=== PATIENT | female | born 1960 | race Caucasian/White ===

== ENCOUNTER → 2018-10-01 14:05 | Outpatient (CLI) | payer OTHER, SELFPAY ==
--- NOTE | 2018-10-01 14:08 | DI.MRI.S_ITS ---
BREAST MRI OF THE RIGHT BREAST: 10/01/2018 CLINICAL: Lesion right breast follow up. PROCEDURE: MR BREAST BI WO/W CON INDICATIONS: Right breast LCIS presents for high-risk screening. TECHNIQUE: The patient was placed prone in a dedicated breast imaging coil. Precontrast axial STIR and 3D FLASH without fat saturation sequences were obtained. Both before and after bolus injection of contrast, sequential 1-minute axial 3D FLASH with fat saturation sequences for 3 time points, with subtraction images and maximum intensity projections (MIP's) generated. Delayed sagittal FLASH images with fat saturation were also obtained. Computer-aided detection, including computer algorithm analysis of MRI image data for lesion detection and characterization, pharmacokinetic analysis, with further physician review for interpretation, was performed. COMPARISON: Outside Facility, [facility], MRI BREAST BILATERAL, 04/12/2017, 14:57. Breast MRI 04/12/2017, 03/01/2016. Tomosynthesis 12/14/2017, 08/23/2016. FINDINGS: Image quality: Excellent. There is minimal background parenchymal enhancement. Right breast: Round enhancing focus in the retroareolar breast at middle depth, (18/68 and 11/53). Oval enhancing focus in the retroareolar lateral breast at posterior depth, (18/58 and 11/76). No suspicious adenopathy. Left breast: Oval enhancing focus in the lateral breast at posterior depth, (19/116 and 11/73). No suspicious adenopathy. Miscellaneous: Nondisplaced right anterolateral fourth rib fracture. IMPRESSION: Right breast: Stable small enhancing foci. BI-RADS 2. Left breast: Stable small enhancing foci. BI-RADS 2. No suspicious adenopathy. Nondisplaced right anterolateral rib fracture. BIRADS overall score 2. COMMENT: The imaging literature indicates that a negative contrast breast MRI examination has a high sensitivity and a moderate specificity for detecting and excluding invasive carcinomas to a detection threshold of 3-5 mm; nonetheless, appropriate clinical and mammographic follow-up are recommended. MRI is not sensitive for detecting DCIS (ductal carcinoma in situ) and may not detect large invasive neoplasms that show only minimal enhancement such as mucinous carcinoma. If there are suspicious calcifications or clinically worrisome palpable masses, then biopsy should still be considered. Invasive neoplasms can be hidden by co-existent and benign enhancement caused by mastitis, hormone therapy effects, radiation therapy, , and recent biopsy or surgery. False positive examinations can occur in a number of circumstances, including breasts that have recently been subject to invasive procedures and those that contain atypical ductal hyperplasia, hormonally stimulated glandular tissue, fat necrosis, or radial scars. Dictated by: Hermelindo Jackson M.D. on 10/02/2018 at 8:47 This exam was interpreted at Station ID: [id number]. Electronically Signed By: Hermelindo Jackson M.D. slc/:10/06/2018 17:57:40 letter sent: Normal Exam ACR BI-RADS Category 2: Benign Finding(s) 3342F
== END ==
PROVIDERS: Visit Provider Nurse Practitioner Family
DX: R92.8 Other abnormal and inconclusive findings on diagnostic imaging of breast (principal); D05.01 Lobular carcinoma in situ of right breast
CPT/HCPCS: 77049; A9579

== ENCOUNTER → 2019-04-14 17:17 | Outpatient (CLI) | payer OTHER, SELFPAY ==
--- NOTE | 2019-04-14 | DI.MG.S_ITS ---
BILATERAL DIGITAL SCREENING MAMMOGRAM 3D/2D WITH CAD: 04/14/2019 CLINICAL: Routine screening. Family history of breast cancer. Comparison is made to exams dated: 07/21/2015 mammogram, 08/23/2016 mammogram, and 12/14/2017 mammogram - [facility]. There are scattered fibroglandular elements in both breasts. Current study was also evaluated with a Computer Aided Detection (CAD) system. There are benign post operative findings in the right breast. No significant masses, calcifications, or other findings are seen in either breast. There has been no significant interval change. IMPRESSION: There is no mammographic evidence of malignancy. A 1 year screening mammogram is recommended. This exam was interpreted at Station ID: [id number]. NOTE: For mammograms, a report in lay terms will be sent to the patient. Approximately 15% of breast malignancies will not be visualized mammographically. In the management of a palpable breast mass, a negative mammogram must not discourage biopsy of a clinically suspicious lesion. Electronically Signed By: Luis Alberto bolaños/javad:04/15/2019 07:39:00 letter sent: Normal Exam ACR BI-RADS Category 2: Benign Finding(s) 3342F
== END ==
PROVIDERS: PCP Student in an Organized Health Care Education/Training Program; Referring Provider Student in an Organized Health Care Education/Training Program; Visit Provider Student in an Organized Health Care Education/Training Program
DX: Z12.31 Encounter for screening mammogram for malignant neoplasm of breast (principal); Z80.3 Family history of malignant neoplasm of breast
CPT/HCPCS: 77063; 77067

== ENCOUNTER → 2019-10-13 09:05 | Outpatient (CLI) | payer BC, SELFPAY ==
[2019-10-13 10:35] LABS: Hematocrit 42.3 % (36-46); Hemoglobin 14.4 g/dL (12.0-16.0); Mean Corpuscular HGB Conc 34.1 % (30-36); Mean Corpuscular Hemoglobin 32.2 PG (26-34); Mean Corpuscular Volume 94.5 fL (80-100); Platelet Count 274 X10^3/uL (150-400); Red Blood Cell Count 4.47 X10^6/uL (4.0-5.2); Red Cell Distribution Width 13.1 % (11.6-14.8); White Blood Cell Count 6.4 X10^3/uL (4.5-11.0)
[2019-10-13 10:47] LABS: Alanine Aminotransferase 26 IU/L (<35); Albumin 4.2 g/dL (3.5-5.0); Albumin Globulin Ratio 1.6 (1.0-2.8); Alkaline Phosphatase 96 U/L (38-126); Aspartate Aminotransferase 28 IU/L (14-36); BUN Creatinine Ratio 24.2 (6-22); Bilirubin Total 0.5 mg/dL (0.2-1.3); Blood Urea Nitrogen 15 mg/dL (7-17); Calcium 9.1 mg/dL (8.4-10.2); Carbon Dioxide 26 mmol/L (22-32); Chloride 104 mmol/L (98-107); Cholesterol 187 mg/dL (140-199); Estimated Glomerular Filt Rate > 60.0 mL/min (>60); Globulin 2.6 g/dL (1.7-4.1); Glucose 95 mg/dL (70-100); HDL Cholesterol 83 mg/dL (40-60); HEMOLYSIS < 15 (0-50); LDL Cholesterol Calculated 91 mg/dL (<100); Potassium 4.3 mmol/L (3.4-5.1); Sodium 138 mmol/L (137-145); Total Protein 6.8 g/dL (6.3-8.2); Triglycerides 65 mg/dL (35-150)
[2019-10-13 11:18] LABS: Free T4, Direct Thyroxine 0.78 ng/dL (0.78-2.19)
[2019-10-13 11:32] LABS: Thyroid Stimulating Hormone 1.37 uIU/mL (0.47-4.68)
[2019-10-13 16:34] LABS: Hepatitis B Surface Antigen NEGATIVE s/c (NEGATIVE)
[2019-10-15 15:09] LABS: QuantiFERON Mitogen Value 5.97 IU/mL (.); QuantiFERON Nil Value 0.14 IU/mL (.); QuantiFERON TB Gold Plus Negative (Negative); QuantiFERON TB1 Ag Value 0.17 IU/mL (.); QuantiFERON TB2 Ag Value 0.13 IU/mL (.)
== END ==
PROVIDERS: PCP Nurse Practitioner Family; Referring Provider Nurse Practitioner Family; Visit Provider Nurse Practitioner Family
DX: E04.1 Nontoxic single thyroid nodule (principal); Z90.09 Acquired absence of other part of head and neck; I10 Essential (primary) hypertension; Z13.6 Encounter for screening for cardiovascular disorders; Z02.1 Encounter for pre-employment examination
CPT/HCPCS: 36415; 80053; 80061; 84439; 84443; 85027; 86480; 87340

== ENCOUNTER → 2019-10-18 11:48 | Outpatient (CLI) | payer BC, SELFPAY ==
[2019-10-19 06:26] LABS: Hepatitis B Surf Ab Qualitativ Reactive (.)
== END ==
PROVIDERS: PCP Nurse Practitioner Family; Referring Provider Nurse Practitioner Family; Visit Provider Nurse Practitioner Family
DX: Z02.1 Encounter for pre-employment examination (principal)
CPT/HCPCS: 36415; 86706

== ENCOUNTER → 2019-12-09 13:13 | Outpatient (CLI) | payer BC, SELFPAY ==
--- NOTE | 2019-12-09 13:14 | DI.MRI.S_ITS ---
BREAST MRI OF BOTH BREASTS: 12/09/2019 CLINICAL: Personal history of in-situ neoplasm of breast. 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 Precontrast axial STIR and 3D FLASH without fat saturation sequences were obtained. Both before and after bolus injection of contrast, sequential 1-minute axial 3D FLASH with fat saturation sequences for 3 time points, with subtraction images and maximum intensity projections (MIP's) generated. Delayed sagittal FLASH images with fat saturation were also obtained. Computer-aided detection, including computer algorithm analysis of MRI image data for lesion detection and characterization, pharmacokinetic analysis, with further physician review for interpretation, was performed. COMPARISON: Outside Facility, , MRI BREAST BILATERAL W / WO CONTRAST, 03/01/2016, 15:44. Outside Facility, [facility], MRI BREAST BILATERAL W / WO CONTRAST, 04/12/2017, 13:08. [facility], , MR BREAST BI WO/W CON, 10/01/2018, 14:15. FINDINGS: Image quality: Excellent. There is mild background parenchymal enhancement. Right breast: 1-2 mm punctate foci of enhancement are redemonstrated within the right breast unchanged from multiple prior MRI exams. No suspicious mass lesions or enhancement within the right breast. Left breast: A stable 4 mm in diameter enhancing mass is present within the left breast at a middle depth at approximately 4:00 a.m. This is unchanged from prior studies and likely represents a small lymph node or fibroadenoma (series 6/image 69). No new suspicious mass lesions or enhancement. Miscellaneous: No axillary or intramammary adenopathy. Limited visualization of the heart, mediastinum, lungs, and upper abdomen are unremarkable. IMPRESSION: NEGATIVE 1. Negative breast MRI. Continue annual mammogram screening schedule is recommended. This exam was interpreted at Station ID: [id number]. Electronically Signed By: Jacquie jaramillo/:12/09/2019 14:40:42 letter sent: Normal Exam ACR BI-RADS Category 1: Negative 3341F
== END ==
PROVIDERS: PCP Nurse Practitioner Family; Referring Provider Nurse Practitioner Family; Visit Provider Nurse Practitioner Family
DX: R92.8 Other abnormal and inconclusive findings on diagnostic imaging of breast (principal); Z86.000 Personal history of in-situ neoplasm of breast
CPT/HCPCS: 77049; A9579

== ENCOUNTER → 2020-01-25 14:55 | Outpatient (CLI) | payer BC, SELFPAY ==
--- NOTE | 2020-01-25 15:03 | DIET.PN ---
Dietary Progress Note Assessment: 59y F attending telehealth visit to discuss abnormal weight gain during global pandemic and some binging habits which have been on and off for many years. Pt lost 10# at beginning of Covid by avoiding over eating and had more structured daily routine. Pt is [employer] recently relocated from [facility] so only living c her part-time. During this time she had more structured day: got dressed, chores, walk dog, go to beach c dog. Pt currently at home alone which she reports as not particularly stressful but has no structure to her day. She cannot identify what scenarios or emotions lead to her binging habits. She averages twice weekly out of control eating with junk food that is within her home. She remarks that binges less when regularly exercising, which is not currently happening. Pt family hx includes a mom who is MD/PhD who was not around much (grew up with yulissa) and did not believe nutrition was a real science, but herself has eating issues c focus on weight, always remarking on food and weight but always kept unhealthy foods in the house and loves dessert. Pt feels this contributes to her current disordered eating patterns. Pt has seen therapist in past but hasn't felt like she connected with them. Would consider therapy with someone who was right fit. HT: 5'5 WT: 192# BMI: 31.5 Labs: all WNL Nutrition Diagnosis: disordered eating pattern r/t ineffective coping with emotions/situations aeb pt reports binge eating twice weekly, pt unable to identify binge triggers, pt feels guilty after overeating, pt feels less urge to binge c regular physical activity. Interventions: 1. To reduce binge eating habits, pt will build structure around her day using regular meals and daily physical activity. 2. To honor hunger and fullness, pt will use the hunger scale trying to eat when a 3 and stop when an 8 rather than starting when a 1 and stopping when a 10 as this leads to feelings of self-shame. 3. Pt will only shop when in a calm frame of mind using a list to avoid purchasing trigger foods. Monitoring/Evaluations: f/u in 3w to assess progress and problem solve barriers. Recc pt enroll in [facility] program for help with emotional aspect.
== END ==
PROVIDERS: PCP Nurse Practitioner Family; Referring Provider Nurse Practitioner Family; Visit Provider Nurse Practitioner Family
DX: E66.09 Other obesity due to excess calories (principal); F50.81 Binge eating disorder; Z68.31 Body mass index [BMI] 31.0-31.9, adult; Z71.3 Dietary counseling and surveillance
CPT/HCPCS: 97802

== ENCOUNTER → 2020-03-07 13:04 | Outpatient (CLI) | payer BC, SELFPAY ==
--- NOTE | 2020-03-07 13:05 | DIET.PN ---
Dietary Progress Note Telehealth f/u for 59y F with disordered eating (binge). Pt reports the tools we discussed last visit have been helpful. Pt uses the hunger scale to regulate her eating, has had fewer binging sessions. Pt is working out meal content and timing. Pt is using emotion word list to assist her with understanding what drives her binging. Pt feels depression contributes or feeling blah. Pt not ready to delve into causes of depression, this RD encouraged her to initiate contact with counselor when she feels ready. Pt still does not have a set schedule, is a procrastinator. Pt feels more motivated in afternoon. Pt had realization that exercise is really atkinson for her health and self-regulation. 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 Pt needs knee replacement, hurts with overuse. Discussed anti-inflammatory dietary principles to help manage knee pain until she has replacement. Pt generated one goal, RD generated one goal: Goals: Get on rowing machine every morning or long walk (1hr) at least 5 days per week. Pt will shop for a few anti-inflammatory foods this week using anti-inflammatory food guide. f/u via telehealth in 2w to assess progress and problem solve barriers.
== END ==
PROVIDERS: PCP Nurse Practitioner Family; Referring Provider Nurse Practitioner Family; Visit Provider Nurse Practitioner Family
DX: F50.81 Binge eating disorder (principal); Z71.3 Dietary counseling and surveillance
CPT/HCPCS: 97803

== ENCOUNTER → 2020-07-11 10:09 | Outpatient (CLI) | payer BC, SELFPAY ==
[2020-07-11 11:06] LABS: Hematocrit 44.3 % (36-46); Mean Corpuscular HGB Conc 33.8 % (30-36); Mean Corpuscular Hemoglobin 31.4 PG (26-34); Platelet Count 257 X10^3/uL (150-400); Red Blood Cell Count 4.76 X10^6/uL (4.0-5.2); Red Cell Distribution Width 13.2 % (11.6-14.8); White Blood Cell Count 7.9 X10^3/uL (4.5-11.0)
[2020-07-11 11:23] LABS: Alanine Aminotransferase 35 IU/L (<35); Albumin 4.3 g/dL (3.5-5.0); Albumin Globulin Ratio 1.6 (1.0-2.8); Alkaline Phosphatase 113 U/L (38-126); Aspartate Aminotransferase 32 IU/L (14-36); BUN Creatinine Ratio 20.3 (6-22); Bilirubin Total 0.6 mg/dL (0.2-1.3); Blood Urea Nitrogen 14 mg/dL (7-17); Calcium 9.2 mg/dL (8.4-10.2); Carbon Dioxide 27 mmol/L (22-32); Chloride 104 mmol/L (98-107); Estimated Glomerular Filt Rate > 60.0 mL/min (>60); Globulin 2.7 g/dL (1.7-4.1); Glucose 107 mg/dL (70-100); HEMOLYSIS < 15 (0-50); Potassium 4.3 mmol/L (3.4-5.1); Sodium 137 mmol/L (137-145)
== END ==
PROVIDERS: PCP Nurse Practitioner Family; Referring Provider Nurse Practitioner Family; Visit Provider Nurse Practitioner Family
DX: Z00.00 Encounter for general adult medical examination without abnormal findings (principal); I10 Essential (primary) hypertension
CPT/HCPCS: 36415; 80053; 85027

== ENCOUNTER → 2020-07-12 12:40 | Outpatient (CLI) | payer BC, SELFPAY ==
[2020-07-12 13:03] LABS: Hemoglobin A1C% w Est Avg Glu 5.4 % (4.0-6.0)
== END ==
PROVIDERS: PCP Nurse Practitioner Family; Visit Provider Nurse Practitioner Family
DX: R73.9 Hyperglycemia, unspecified (principal)
CPT/HCPCS: 83036

== ENCOUNTER → 2020-09-25 16:28 | Outpatient (CLI) | payer BC, SELFPAY ==
[2020-09-29 16:09] LABS: QuantiFERON Mitogen Value >10.00 IU/mL (.); QuantiFERON Nil Value 0.01 IU/mL (.); QuantiFERON TB Gold Plus Negative (Negative); QuantiFERON TB1 Ag Value 0.02 IU/mL (.); QuantiFERON TB2 Ag Value 0.02 IU/mL (.)
== END ==
PROVIDERS: PCP Nurse Practitioner Family; Referring Provider Nurse Practitioner Family; Visit Provider Nurse Practitioner Family
DX: Z11.1 Encounter for screening for respiratory tuberculosis (principal)
CPT/HCPCS: 36415; 86480

== ENCOUNTER → 2020-10-18 11:12 | Outpatient (CLI) | payer BC, SELFPAY ==
--- NOTE | 2020-10-18 11:13 | DI.RAD.S_ITS ---
PROCEDURE: XR WRIST LT MIN 3V INDICATIONS: Fell down stairs TECHNIQUE: For views of the wrist were acquired. COMPARISON: None. FINDINGS: Bones: Comminuted, intra-articular fracture of the distal radius. Scaphoid view: Scaphoid is intact Soft tissues: No suspicious soft tissue calcifications. IMPRESSION: Comminuted intra-articular distal radius fracture. Dictated by: Linnea Nieves MD, PhD on 10/18/2020 at 11:40 Approved by: Linnea Nieves MD, PhD on 10/18/2020 at 11:40
--- NOTE | 2020-10-18 11:13 | DI.RAD.S_ITS ---
PROCEDURE: XR HAND LT MIN 3V INDICATIONS: Fell down stairs HURT WRIST TECHNIQUE: 3 views of the hand(s) acquired. COMPARISON: None. FINDINGS: Bones: Comminuted fracture of the distal radius. Carpal bones are normally aligned. No suspicious bony lesions. Soft tissues: No suspicious soft tissue calcifications. IMPRESSION: Comminuted, intra-articular distal radius fracture. Dictated by: Linnea Nieves MD, PhD on 10/18/2020 at 11:41 Approved by: Linnea Nieves MD, PhD on 10/18/2020 at 11:41
== END ==
PROVIDERS: PCP Nurse Practitioner Family; Referring Provider Nurse Practitioner; Visit Provider Nurse Practitioner
DX: S52.572A Other intraarticular fracture of lower end of left radius, initial encounter for closed fracture (principal); W10.9XXA Fall (on) (from) unspecified stairs and steps, initial encounter
CPT/HCPCS: 73110; 73130

== ENCOUNTER → 2021-05-02 11:17 | Outpatient (CLI) | payer BC, SELFPAY ==
--- NOTE | 2021-05-02 11:18 | DI.MRI.S_ITS ---
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 Comparison is made to exams dated: 12/09/2019 breast MRI, 04/14/2019 mammogram, 10/01/2018 breast MRI - [facility], 12/14/2017 breast MRI, and 12/14/2017 mammogram - [facility]. INDICATIONS: 6 month follow up TECHNIQUE: The patient was placed prone in a dedicated breast imaging coil. Precontrast axial STIR and 3D FLASH without fat saturation sequences were obtained. Both before and after bolus injection of contrast, sequential 1-minute axial 3D FLASH with fat saturation sequences for 3 time points, with subtraction images and maximum intensity projections (MIP's) generated. Delayed sagittal FLASH images with fat saturation were also obtained. Computer-aided detection, including computer algorithm analysis of MRI image data for lesion detection and characterization, pharmacokinetic analysis, with further physician review for interpretation, was performed. FINDINGS: Image quality: Excellent. There is mild stippled background parenchymal enhancement. Scattered fibroglandular elements are seen in both breasts. Right breast: Stable postsurgical changes are seen in the superior right breast. Multiple stable punctate foci of enhancement in the right breast are unchanged. No suspicious mass or abnormal non-mass enhancement is seen in the right breast. Left breast: Multiple stable punctate foci of enhancement in the left breast are unchanged. No suspicious mass or abnormal non-mass enhancement is seen in the left breast. Miscellaneous: No axillary or internal mammary lymphadenopathy by size criteria. Visualized portions of the lungs and liver demonstrate no discrete suspicious lesions. IMPRESSION: NEGATIVE No MR evidence of malignancy. No suspicious axillary or internal mammary lymphadenopathy. BIRADS 1: Negative. Recommend annual screening mammograms, currently due. COMMENT: The imaging literature indicates that a negative contrast breast MRI examination has a high sensitivity and a moderate specificity for detecting and excluding invasive carcinomas to a detection threshold of 3-5 mm; nonetheless, appropriate clinical and mammographic follow-up are recommended. MRI is not sensitive for detecting DCIS (ductal carcinoma in situ) and may not detect large invasive neoplasms that show only minimal enhancement such as mucinous carcinoma. If there are suspicious calcifications or clinically worrisome palpable masses, then biopsy should still be considered. Invasive neoplasms can be hidden by co-existent and benign enhancement caused by mastitis, hormone therapy effects, radiation therapy, , and recent biopsy or surgery. False positive examinations can occur in a number of circumstances, including breasts that have recently been subject to invasive procedures and those that contain atypical ductal hyperplasia, hormonally stimulated glandular tissue, fat necrosis, or radial scars. Return to annual mammogram screening schedule is recommended. This exam was interpreted at Station ID: [id number]. Electronically Signed By: Corbin Ochoa M.D. ar/:05/02/2021 13:00:32 letter sent: Normal Exam ACR BI-RADS Category 1: Negative 3341F
== END ==
PROVIDERS: PCP Nurse Practitioner Family; Referring Provider Nurse Practitioner Family; Visit Provider Nurse Practitioner Family
DX: Z86.000 Personal history of in-situ neoplasm of breast (principal)
CPT/HCPCS: 77049; A9579